=== PATIENT | male | born 1990 | race African-American/Black ===

== ENCOUNTER 2020-12-01 11:19 | Emergency (ER) | payer SELFPAY ==
[~2020-12-01] VITALS: Ht 177.8 cm; Wt 65.0 kg
[2020-12-01 11:54] VITALS: BP 116/59
[2020-12-01] MEDS ORDERED: LIDOCAINE HCL 1% 20ML VIAL (Pyxis) INJ INFIL ONE (12:45)
[2020-12-01] MEDS ORDERED: CEFTRIAXONE SODIUM 500 MG/VIAL IM ONE (12:45)
[2020-12-01] MEDS ORDERED: DOXY100C2 MT (13:16)
[2020-12-01] MEDS ORDERED: ACYC200C MT (13:16)
[2020-12-04 04:07] LABS: NEISSERIA GONORRHOEAE NAA Negative (Negative)
== END 2020-12-01 18:09 | disposition home or self-care (01) ==
LOC: ER 11:52
DX: B00.9 Herpesviral infection, unspecified (principal); Z11.3 Encounter for screening for infections with a predominantly sexual mode of transmission
CPT/HCPCS: 87491; 87591; 96372; 99283; J0696; J3490